=== PATIENT | male | born 1960 ===

== ENCOUNTER 2019-06-28 14:51 | Inpatient (IN) | payer OTHER ==
--- NOTE | 2019-06-28 16:38 | Event Note ---
ED Screening Note Date of service: 06/28/19 Time: 16:34 ED Screening Note: This is a 59 y.o. M. that presents to the ER with polyphasia and dizzy for 1 week. He went to [facility] today for symptoms and sent here for hyperglycemia and new onset DM. This initial assessment/diagnostic orders/clinical plan/treatment(s) is/are subject to change based on patients health status, clinical progression and re- assessment by fellow clinical providers in the ED. Further treatment and workup at subsequent clinical providers discretion. Patient/guardian urged not to elope from the ED as their condition may be serious if not clinically assessed and managed. Initial orders include: BG over 500 Labs
[2019-06-28 17:17] LABS: Basophils # (Auto) 0.1 K/mm3 (0.0-0.1); Basophils % (Auto) 0.7 % (0.0-1.8); Eosinophils % (Auto) 0.1 % (0.0-4.3); Hematocrit 53.2 % (35.5-45.6); Hemoglobin 17.2 gm/dl (11.8-15.2); Lymphocytes # (Auto) 2.1 K/mm3 (1.2-5.4); Lymphocytes % (Auto) 15.3 % (13.4-35.0); Mean Corpuscular HGB Conc 32 % (32-34); Mean Corpuscular Volume 93 fl (84-94); Monocytes % (Auto) 7.2 % (0.0-7.3); Platelet Count 352 K/mm3 (140-440); Red Blood Count 5.69 M/mm3 (3.65-5.03); Red Cell Distribution Width 14.1 % (13.2-15.2)
[2019-06-28 17:40] LABS: Calcium 9.5 mg/dL (8.4-10.2)
--- NOTE | 2019-06-28 18:19 | Emergency Department Report ---
ED General Adult HPI - General Chief complaint: Hyperglycemia Stated complaint: HIGH GLUCOSE/WEAKNESS Time Seen by Provider: 06/28/19 16:33 Source: patient, RN notes reviewed Mode of arrival: Ambulatory Limitations: Language Barrier - History of Present Illness Initial comments: This provider is conversant in Irish The patient is a 59-year-old gentleman who is not known to this provider previously, who indicates he does not have a local primary care doctor, who presents to the ER with increased thirst, increased urination, malaise, fatigue, generalized lack of energy. He is not experiencing physical pain at this time. Symptoms present for 2 weeks. He does not believe they have exacerbating or relieving factors, but there gradually getting worse. To his knowledge, he does not have a history of diabetes. Patient indicates he is not having physical pain at this time. -: Gradual, week(s) (2) Consistency: constant Improves with: none Worsens with: none - Related Data Allergies Allergy/AdvReac Type Severity Reaction Status Date / Time No Known Allergies Allergy Unverified 06/28/19 14:57 ED Review of Systems ROS: Stated complaint: HIGH GLUCOSE/WEAKNESS Other details as noted in HPI Constitutional: malaise, weakness Respiratory: denies: cough Cardiovascular: denies: chest pain Gastrointestinal: denies: abdominal pain Genitourinary: frequency Neurological: weakness ED Past Medical Hx - Past Medical History Previous Medical History?: No - Social History Smoking Status: Never Smoker Substance Use Type: None ED Physical Exam - General Limitations: Language Barrier General appearance: alert, anxious - Head Head exam: Present: atraumatic, normocephalic - Eye Eye exam: Present: normal appearance, EOMI. Absent: nystagmus - ENT ENT exam: Present: normal orophraynx, mucous membranes dry, normal external ear exam - Neck Neck exam: Present: normal inspection, full ROM. Absent: tenderness, meningismus - Respiratory Respiratory exam: Present: normal lung sounds bilaterally. Absent: respiratory distress - Cardiovascular Cardiovascular Exam: Present: normal rhythm, tachycardia, normal heart sounds. Absent: systolic murmur, diastolic murmur, rubs, gallop - GI/Abdominal GI/Abdominal exam: Present: soft. Absent: distended, tenderness, guarding, rebound, rigid, pulsatile mass - Rectal Rectal exam: Present: deferred - Extremities Exam Extremities exam: Present: normal inspection, full ROM, other (2+ pulses noted i n the bilateral upper and lower extremities. There is no long bony tenderness. The pelvis is stable, the muscular compartments are soft. There is no redness, pus or streaking.). Absent: pedal edema, calf tenderness - Back Exam Back exam: Present: normal inspection, full ROM. Absent: tenderness, CVA tenderness (R), CVA tenderness (L), paraspinal tenderness, vertebral tenderness - Neurological Exam Neurological exam: Present: alert, other (there is no facial droop. The tongue is midline. The extraocular movements are intact bilaterally. Phonating in complete sentences. Appropriate thought content. V1, V2, V3 intact bilaterally. 5 out of 5 strength in 4 extremities. Sensation intact to light touch in 4 extremities.). Absent: motor sensory deficit - Psychiatric Psychiatric exam: Present: anxious - Skin Skin exam: Present: warm, dry, intact, normal color. Absent: rash ED Course Vital Signs 06/28/19 06/28/19 06/28/19 18:14 18:57 19:43 Pulse Rate 98 H 99 H 96 H Respiratory 18 16 Rate Blood Pressure 159/95 Blood Pressure 162/100 158/104 [Left] O2 Sat by Pulse 95 99 Oximetry ED Medical Decision Making - Lab Data Result diagrams: 06/28/19 16:48 06/28/19 18:35 Vital Signs 06/28/19 18:14 Pulse Rate 98 H Respiratory 18 Rate Blood Pressure 162/100 [Left] O2 Sat by Pulse 95 Oximetry Lab Results 06/28/19 06/28/19 06/28/19 Range/Units 15:15 16:47 16:48 WBC 13.8 H (4.5-11.0) K/mm3 RBC 5.69 H (3.65-5.03) M/mm3 Hgb 17.2 H (11.8-15.2) gm/dl Hct 53.2 H (35.5-45.6) % MCV 93 (84-94) fl MCH 30 (28-32) pg MCHC 32 (32-34) % RDW 14.1 (13.2-15.2) % Plt Count 352 (140-440) K/mm3 Lymph % (Auto) 15.3 (13.4-35.0) % [place] % (Auto) 7.2 (0.0-7.3) % Eos % (Auto) 0.1 (0.0-4.3) % Baso % (Auto) 0.7 (0.0-1.8) % Lymph # 2.1 (1.2-5.4) K/mm3 [place] # 1.0 H (0.0-0.8) K/mm3 Eos # 0.0 (0.0-0.4) K/mm3 Baso # 0.1 (0.0-0.1) K/mm3 Seg Neutrophils % 76.7 H (40.0-70.0) % Seg Neutrophils # 10.6 H (1.8-7.7) K/mm3 Sodium (137-145) mmol/L Potassium (3.6-5.0) mmol/L Chloride (98-107) mmol/L Carbon Dioxide (22-30) mmol/L Anion Gap mmol/L BUN (9-20) mg/dL Creatinine (0.8-1.5) mg/dL Estimated GFR ml/min BUN/Creatinine Ratio % Glucose (75-100) mg/dL POC Glucose > 500 H > 500 H (70-105) Calcium (8.4-10.2) mg/dL 06/28/19 Range/Units 16:48 WBC (4.5-11.0) K/mm3 RBC (3.65-5.03) M/mm3 Hgb (11.8-15.2) gm/dl Hct (35.5-45.6) % MCV (84-94) fl MCH (28-32) pg MCHC (32-34) % RDW (13.2-15.2) % Plt Count (140-440) K/mm3 Lymph % (Auto) (13.4-35.0) % [place] % (Auto) (0.0-7.3) % Eos % (Auto) (0.0-4.3) % Baso % (Auto) (0.0-1.8) % Lymph # (1.2-5.4) K/mm3 [place] # (0.0-0.8) K/mm3 Eos # (0.0-0.4) K/mm3 Baso # (0.0-0.1) K/mm3 Seg Neutrophils % (40.0-70.0) % Seg Neutrophils # (1.8-7.7) K/mm3 Sodium 129 L (137-145) mmol/L Potassium 6.6 H* (3.6-5.0) mmol/L Chloride 90.9 L (98-107) mmol/L Carbon Dioxide 17 L (22-30) mmol/L Anion Gap 28 mmol/L BUN 38 H (9-20) mg/dL Creatinine 1.5 (0.8-1.5) mg/dL Estimated GFR 48 ml/min BUN/Creatinine Ratio 25 % Glucose 1311 H* (75-100) mg/dL POC Glucose (70-105) Calcium 9.5 (8.4-10.2) mg/dL - EKG Data -: EKG Interpreted by Me EKG shows normal: sinus rhythm Rate: normal - EKG Data When compared to previous EKG there are: previous EKG unavailable 06/28/19 18:49 There is no prior EKG available for comparison. EKG shows a sinus rhythm, 97 beats per minute, left axis deviation, left ventricular hypertrophy, left anterior fascicular block, not consistent with STEMI. No prior for comparison. Left axis deviation. - Radiology Data Radiology results: pending, report reviewed, image reviewed xr chest negative - Medical Decision Making Differential diagnosis, including but not limited to: Dehydration, diabetic ketoacidosis, hyperosmolar state Assessment and plan: 59-year-old gentleman with laboratory studies sent suggest diabetic ketoacidosis, pseudohyponatremia. He'll be started on a diabetic ketoacidotic protocol. IV fluids and insulin ordered. He'll need to be admitted to the hospital for correction of his metabolic derangement. Discussed this with the patient, who verbalizes understanding, and is amenable to hospitalization. The hospital physician, Dr. Bess, has accepted the patient to the medical service. Critical Care Time: Yes Critical care time in (mins) excluding proc time.: 35 Critical care attestation.: If time is entered above; I have spent that time in minutes in the direct care of this critically ill patient, excluding procedure time. ED Disposition Clinical Impression: DKA (diabetic ketoacidoses) Qualifiers: Diabetes mellitus type: due to underlying condition Diabetes mellitus complication detail: without coma Qualified Code(s): E08.10 - Diabetes mellitus due to underlying condition with ketoacidosis without coma Disposition: 09 OP ADMIT IP TO THIS HOSP Is pt being admited?: Yes Condition: Critical Instructions: Diabetic Ketoacidosis (ED)
[2019-06-28] MEDS ORDERED: SODIUM CHLORIDE 0.9% 1000 ML 2,000 ML IV ONE (18:20)
[2019-06-28] MEDS ORDERED: SODIUM CHLORIDE 0.9% 1000 ML 1,000 ML IV ONE (18:20)
[2019-06-28] MEDS ORDERED: INSULIN REGULAR, HUMAN 100 UNITS/1 ML IV ONE (18:20)
[2019-06-28] MEDS ORDERED: DEXTROSE 50% IN WATER (25GM) 50 ML SYRINGE IV PRN (18:20)
--- NOTE | 2019-06-28 18:44 | History and Physical Report ---
History of Present Illness Chief complaint: I feel sick History of present illness: 59-year-old male with no past medical history presents to ED for evaluation. Patient states that he has experienced increased thirst, polydipsia, polyphagia, polyuria, and generalized weakness over the past 2 weeks with worsening symptoms over the same timeframe. Patient transported to [facility] via private vehicle. Patient seen and evaluated in the emergency department. Lab and imaging studies reviewed. Patient found to have new onset diabetes mellitus complicated by diabetic ketoacidosis. Patient admitted to ICU for medical stabilization due to high risk for decompensation. Patient placed on DKA protocol. Patient treated with IV fluid resuscitation therapy, insulin drip, and supportive care. Patient denies fever, chills, chest pain, palpitations, bright red blood per rectum, productive cough, skin rash, shortness of breath, prolonged travel/immobility, individual/family history of DVT/PE/bleeding/blood clotting disorders, unilateral leg swelling, calf pain, recent ill contacts. No prior admission for review. No medication listed for reconciliation at time of admission. Past History Past Medical History: No medical history, other (Reviewed) Past Surgical History: No surgical history, Other (Reviewed) Social history: single. denies: smoking, alcohol abuse, prescription drug abuse Family history: diabetes, hypertension Medications and Allergies Allergies Allergy/AdvReac Type Severity Reaction Status Date / Time No Known Allergies Allergy Unverified 06/28/19 14:57 Active Meds: Active Medications Dextrose (D50w (25gm) Syringe) 0 ml IV Q30MIN PRN; Protocol PRN Reason: Hypoglycemia Sodium Chloride (Nacl 0.9% 1000 Ml) 1,000 mls @ 999 mls/hr IV BOLUS ONE Stop: 06/28/19 19:20 Insulin Human Regular 100 (units/ Sodium Chloride) 100 mls @ 1 mls/hr IV TITR KWASI; Protocol Potassium Chloride/Dextrose/Sod Cl (D5w/0.45% Nacl/Kcl 20 Meq) 20 meq in 1,000 mls @ 125 mls/hr IV DIRECT KWASI Sodium Chloride (Sodium Chloride Flush Syringe 10 Ml) 10 ml IV PRN KWASI Review of Systems Constitutional: no weight loss, no weight gain, no fever, no chills Ears, nose, mouth and throat: no ear pain, no nasal congestion, no nasal discharge, no sinus pain Cardiovascular: no chest pain, no palpitations, no rapid/irregular heart beat, no edema, no syncope Respiratory: no cough, no excessive sputum, no shortness of breath Gastrointestinal: no nausea, no vomiting, no constipation Genitourinary Male: urinary frequency, no hematuria, no flank pain, no discharg e, no urinary hesitancy Rectal: no pain, no incontinence, no bleeding Musculoskeletal: no neck stiffness, no neck pain, no low back pain, no shooting leg pain, no leg numbness/tingling Integumentary: no rash, no redness, no sores Neurological: weakness, no transient paralysis, no parathesias, no tingling, no syncope, no ataxia Psychiatric: no anxiety, no memory loss, no change in sleep habits, no sleep disturbances, no hypersomnia, no change in appetite, no change in libido, no suicidal ideation Endocrine: polyphagia, excessive thirst, polydipsia, polyuria, nocturia, no cold intolerance, no heat intolerance Hematologic/Lymphatic: no easy bruising, no easy bleeding, no lymphadenopathy, no lymphedema Allergic/Immunologic: no allergic rhinitis, no wheezing, no persistent infections, no anaphylaxis Exam - Constitutional Vitals: Temp Pulse Resp BP Pulse Ox 98 H 18 162/100 95 06/28/19 18:14 06/28/19 18:14 06/28/19 18:14 06/28/19 18:14 General appearance: Present: mild distress - EENT Eyes: Present: PERRL ENT: hearing intact, clear oral mucosa, other (Dry oral mucosa) - Neck Neck: Present: supple, normal ROM - Respiratory Respiratory effort: normal Respiratory: bilateral: CTA - Cardiovascular Rhythm: other (Tachycardia) Heart Sounds: Present: S1 & S2. Absent: rub, click - Extremities Extremities: pulses symmetrical, No edema Peripheral Pulses: within normal limits - Abdominal General gastrointestinal: Present: soft, non-tender, non-distended, normal bowel sounds Male genitourinary: Present: normal - Integumentary Integumentary: Present: clear, warm, dry, clammy, decreased turgor - Musculoskeletal Musculoskeletal: generalized weakness - Psychiatric Psychiatric: appropriate mood/affect, intact judgment & insight - Neurologic Neurologic: CNII-XII intact, moves all extremities Results - Labs CBC & Chem 7: 06/28/19 16:48 06/28/19 18:35 Labs: Abnormal lab results 06/28/19 06/28/19 06/28/19 Range/Units 15:15 16:47 16:48 WBC 13.8 H (4.5-11.0) K/mm3 RBC 5.69 H (3.65-5.03) M/mm3 Hgb 17.2 H (11.8-15.2) gm/dl Hct 53.2 H (35.5-45.6) % [place] # 1.0 H (0.0-0.8) K/mm3 Seg Neutrophils % 76.7 H (40.0-70.0) % Seg Neutrophils # 10.6 H (1.8-7.7) K/mm3 Sodium (137-145) mmol/L Potassium (3.6-5.0) mmol/L Chloride (98-107) mmol/L Carbon Dioxide (22-30) mmol/L BUN (9-20) mg/dL Glucose (75-100) mg/dL POC Glucose > 500 H > 500 H (70-105) 06/28/19 Range/Units 16:48 WBC (4.5-11.0) K/mm3 RBC (3.65-5.03) M/mm3 Hgb (11.8-15.2) gm/dl Hct (35.5-45.6) % [place] # (0.0-0.8) K/mm3 Seg Neutrophils % (40.0-70.0) % Seg Neutrophils # (1.8-7.7) K/mm3 Sodium 129 L (137-145) mmol/L Potassium 6.6 H* (3.6-5.0) mmol/L Chloride 90.9 L (98-107) mmol/L Carbon Dioxide 17 L (22-30) mmol/L BUN 38 H (9-20) mg/dL Glucose 1311 H* (75-100) mg/dL POC Glucose (70-105) Assessment and Plan - Patient Problems (1) DKA (diabetic ketoacidoses) Status: Acute Qualifiers: Diabetes mellitus type: due to underlying condition Diabetes mellitus complication detail: without coma Qualified Code(s): E08.10 - Diabetes mellitus due to underlying condition with ketoacidosis without coma Plan to address problem: DKA protocol: Admit to ICU, IV fluid resuscitation therapy, insulin drip, serial BMP, monitor urine output every shift, monitor anion gap, supportive care. The high probability of a clinically significant, sudden or life threatening deterioration of the [endocrine, renal, cardiac] system(s) required my full and direct attention, intervention and personal management. The aggregate critical care time was [65] minutes. This time is in addition to time spent performing reported procedures but includes the following: [X] Data Review and interpretation [X] Patient assessment and monitoring of vital signs [X] Documentation [X] Medication orders and management (2) Systemic inflammatory response syndrome Status: Acute Plan to address problem: CBC, CMP, chest x-ray, urinalysis, empiric IV antibiotic therapy x1. Repeat CBC in a.m. (3) Metabolic acidosis Status: Acute Plan to address problem: IV fluid resuscitation therapy, IV bicarbonate therapy, supportive care. Treat DKA. (4) DVT prophylaxis Status: Acute Plan to address problem: SCD to bilateral lower extremities while in bed, prophylactic heparin.
[2019-06-28] MEDS ORDERED: ALBUTEROL 2.5 MG/3 ML NEBU IH PRN (18:45)
[2019-06-28] MEDS ORDERED: SODIUM CHLORIDE 0.9% 1000 ML 1,000 ML IV SCH ×2 (18:45→18:48)
[2019-06-28] MEDS ORDERED: SODIUM BICARB 8.4% 50 MEQ/50 ML SYRINGE IV ONE (18:48)
--- NOTE | 2019-06-28 18:54 | XRay Report ---
CHEST 1 VIEW 06/28/2019 6:34 PM INDICATION / CLINICAL INFORMATION: weak new onset dka. COMPARISON: None available. FINDINGS: SUPPORT DEVICES: None. HEART / MEDIASTINUM: No significant abnormality. LUNGS / PLEURA: No significant pulmonary or pleural abnormality. No pneumothorax. ADDITIONAL FINDINGS: No significant additional findings. IMPRESSION: 1. No acute findings. Signer Name: Zach Wilcox MD Signed: 06/28/2019 6:49 PM Workstation Name: [id number]
[2019-06-28] MEDS ORDERED: hydrALAZINE 20 MG/1 ML INJ IV PRN (18:55)
[2019-06-28] MEDS ORDERED: D5W/0.45% NACL/KCL 20 MEQ 20 MEQ/1,000 ML BAG IV SCH (19:00)
[2019-06-28] MEDS ORDERED: INSULIN REGULAR, HUMAN 100 UNITS in SODIUM CHLORIDE 0.9% 99 ML IV SCH ×2 (19:00)
[2019-06-28 19:06] LABS: Calcium 9.6 mg/dL (8.4-10.2)
[2019-06-28 19:09] LABS: Alanine Aminotransferase 43 units/L (7-56); Albumin 4.3 g/dL (3.9-5)
[2019-06-28 19:17] LABS: Bilirubin,Direct < 0.2 mg/dL (0-0.2)
[2019-06-28] MEDS: LISINOPRIL 5 MG TAB PO SCH (19:43)
[2019-06-28] MEDS: cefTRIAXone/NS 1 GM/50 ML 1 GM/50 ML BAG IV SCH (19:43)
[2019-06-28 22:01] LABS: BUN/Creatinine Ratio 28; Blood Urea Nitrogen 33 mg/dL (9-20); Calcium 8.3 mg/dL (8.4-10.2); Hemolysis Index 3
[2019-06-28 23:34] LABS: BUN/Creatinine Ratio 26; Blood Urea Nitrogen 31 mg/dL (9-20); Calcium 9.1 mg/dL (8.4-10.2)
[2019-06-28 23:35] LABS: Hemolysis Index 8
[2019-06-28] MEDS ORDERED: FAMOTIDINE 20 MG TAB ONE (23:35)
[2019-06-28] MEDS ORDERED: HEPARIN 5,000 UNIT/1 ML VIAL ONE (23:35)
[2019-06-29] MEDS: HEPARIN 5,000 UNIT/1 ML VIAL SUB-Q SCH ×3 (00:08→22:14)
[2019-06-29] MEDS: FAMOTIDINE 20 MG TAB PO SCH ×3 (00:08→22:13)
[2019-06-29] MEDS ORDERED: D5W/0.45% NACL/KCL 20 MEQ 20 MEQ/1,000 ML BAG IV ONE (01:31)
[2019-06-29 02:12] LABS: Calcium 9.2 mg/dL (8.4-10.2)
[2019-06-29 03:47] LABS: Albumin 3.7 g/dL (3.9-5); Calcium 8.8 mg/dL (8.4-10.2)
[2019-06-29 06:35] LABS: Alanine Aminotransferase 32 units/L (7-56); BUN/Creatinine Ratio 28; Blood Urea Nitrogen 33 mg/dL (9-20); Calcium 8.8 mg/dL (8.4-10.2); Hemolysis Index 20
[2019-06-29 07:30] LABS: Albumin 3.6 g/dL (3.9-5)
[2019-06-29] MEDS ORDERED: DEXTROSE 50% IN WATER (25GM) 50 ML SYRINGE IV PRN (08:56)
[2019-06-29] MEDS ORDERED: INSULIN NPH, HUMAN 100 UNIT/1 ML SUB-Q SCH (09:30)
[2019-06-29 09:53] LABS: Bilirubin,Urine NEG (Negative); Blood,Urine NEG (Negative); Color,Urine Yellow (Yellow); Mucus,Urine FEW /HPF; Protein,Urine <15 mg/dL mg/dL (Negative); Urobilinogen,Urine < 2.0 mg/dL (<2.0)
[2019-06-29] MEDS ORDERED: LISINOPRIL 5 MG TAB ONE (11:12)
[2019-06-29] MEDS: LISINOPRIL 5 MG TAB PO SCH (11:12)
[2019-06-29] MEDS ORDERED: HEPARIN 5,000 UNIT/1 ML VIAL ONE (11:12)
[2019-06-29] MEDS ORDERED: FAMOTIDINE 20 MG TAB ONE (11:12)
--- NOTE | 2019-06-29 11:12 | Progress Note ---
Assessment and Plan Assessment and plan: 59-year-old man who presents to the hospital polydipsia and polyuria.He was being seen at the last clinic [place] for new onset diabetes and hyperglycemia, his blood glucose was over 500 and they recommended he come to the ER. DKA Status post insulin drip, now on subcutaneous insulin. IV fluids. A1c 11.7 Hypernatremia/dehydration Hypotonic IV fluid Health maintenance; check lipid panel Preventative health counseling performed for 17 minutes DVT prophylaxis; early ambulation History Interval history: Continues to complain of thirst and dehydration Review of systems Constitutional: No fevers, no malaise, no joint pains CVS: No chest pain, no orthopnea, no pedal edema GI: No abdominal pain, no diarrhea, no vomiting, no constipation Respiratory: , no wheezing, no coughing Hospitalist Physical - Physical exam Narrative exam: General.: Appears well, no distress, nontoxic HEENT: Dry mucous membranes Neck: supple Cardiac: S1-S2 heard Lungs: clear to auscultation bilaterally Abdomen: soft , nontender, nondistended, bowel sounds positive Extremities: no edema clubbing or cyanosis Skin: no rash or lesions Neurologic: no gross focal deficits Psych: calm, and cooperative - Constitutional Vitals: Temp Pulse Resp BP Pulse Ox 98.3 F 100 H 18 117/79 96 06/29/19 11:05 06/29/19 11:05 06/29/19 11:05 06/29/19 11:05 06/29/19 11:05 General appearance: Present: mild distress Results - Labs CBC & Chem 7: 06/28/19 16:48 06/29/19 05:54 Labs: Laboratory Last Values WBC 13.8 K/mm3 (4.5-11.0) H 06/28/19 16:48 RBC 5.69 M/mm3 (3.65-5.03) H 06/28/19 16:48 Hgb 17.2 gm/dl (11.8-15.2) H 06/28/19 16:48 Hct 53.2 % (35.5-45.6) H 06/28/19 16:48 MCV 93 fl (84-94) 06/28/19 16:48 MCH 30 pg (28-32) 06/28/19 16:48 MCHC 32 % (32-34) 06/28/19 16:48 RDW 14.1 % (13.2-15.2) 06/28/19 16:48 Plt Count 352 K/mm3 (140-440) 06/28/19 16:48 Lymph % (Auto) 15.3 % (13.4-35.0) 06/28/19 16:48 [place] % (Auto) 7.2 % (0.0-7.3) 06/28/19 16:48 Eos % (Auto) 0.1 % (0.0-4.3) 06/28/19 16:48 Baso % (Auto) 0.7 % (0.0-1.8) 06/28/19 16:48 Lymph # 2.1 K/mm3 (1.2-5.4) 06/28/19 16:48 [place] # 1.0 K/mm3 (0.0-0.8) H 06/28/19 16:48 Eos # 0.0 K/mm3 (0.0-0.4) 06/28/19 16:48 Baso # 0.1 K/mm3 (0.0-0.1) 06/28/19 16:48 Seg Neutrophils % 76.7 % (40.0-70.0) H 06/28/19 16:48 Seg Neutrophils # 10.6 K/mm3 (1.8-7.7) H 06/28/19 16:48 Sodium 153 mmol/L (137-145) H 06/29/19 05:54 Potassium 4.4 mmol/L (3.6-5.0) 06/29/19 05:54 Chloride 116.8 mmol/L (98-107) H 06/29/19 05:54 Carbon Dioxide 22 mmol/L (22-30) 06/29/19 05:54 Anion Gap 19 mmol/L 06/29/19 05:54 BUN 33 mg/dL (9-20) H 06/29/19 05:54 Creatinine 1.2 mg/dL (0.8-1.5) 06/29/19 05:54 Estimated GFR > 60 ml/min 06/29/19 05:54 BUN/Creatinine Ratio 28 % 06/29/19 05:54 Glucose 188 mg/dL (75-100) H 06/29/19 05:54 POC Glucose 368 (70-105) H 06/29/19 09:30 Hemoglobin A1c 11.7 % (4-6) H 06/28/19 18:35 Calcium 8.8 mg/dL (8.4-10.2) 06/29/19 05:54 Phosphorus 5.00 mg/dL (2.5-4.5) H 06/28/19 19:16 Magnesium 3.20 mg/dL (1.7-2.3) H 06/28/19 19:16 Total Bilirubin 0.30 mg/dL (0.1-1.2) 06/29/19 05:54 Direct Bilirubin < 0.2 mg/dL (0-0.2) 06/28/19 18:35 Indirect Bilirubin 0.3 mg/dL 06/28/19 18:35 AST 19 units/L (5-40) 06/29/19 05:54 ALT 32 units/L (7-56) 06/29/19 05:54 Alkaline Phosphatase 130 units/L (35-129) H 06/29/19 05:54 Total Creatine Kinase 360 units/L (55-170) H 06/28/19 18:35 Total Protein 7.1 g/dL (6.3-8.2) 06/29/19 05:54 Albumin 3.6 g/dL (3.9-5) L 06/29/19 05:54 Albumin/Globulin Ratio 1.0 % 06/29/19 05:54 Urine Color Yellow (Yellow) 06/29/19 09:42 Urine Turbidity Clear (Clear) 06/29/19 09:42 Urine pH 5.0 (5.0-7.0) 06/29/19 09:42 Ur Specific [place] 1.030 (1.003-1.030) 06/29/19 09:42 Urine Protein <15 mg/dl mg/dL (Negative) 06/29/19 09:42 Urine Glucose (UA) >=500 mg/dL (Negative) 06/29/19 09:42 Urine Ketones Tr mg/dL (Negative) 06/29/19 09:42 Urine Blood Neg (Negative) 06/29/19 09:42 Urine Nitrite Neg (Negative) 06/29/19 09:42 Urine Bilirubin Neg (Negative) 06/29/19 09:42 Urine Urobilinogen < 2.0 mg/dL (<2.0) 06/29/19 09:42 Ur Leukocyte Esterase Neg (Negative) 06/29/19 09:42 Urine WBC (Auto) 7.0 /HPF (0.0-6.0) H 06/29/19 09:42 Urine RBC (Auto) 3.0 /HPF (0.0-6.0) 06/29/19 09:42 U Epithel Cells (Auto) < 1.0 /HPF (0-13.0) 06/29/19 09:42 Urine Mucus Few /HPF 06/29/19 09:42 Active Medications - Current Medications Current Medications: Generic Name Dose Route Start Last Admin Trade Name Freq PRN Reason Stop Dose Admin Albuterol 2.5 mg 06/28/19 18:45 Proventil IH Q3H PRN Shortness Of Breath Dextrose 50 ml 06/29/19 08:56 D50w (25gm) Syringe IV Q30MIN PRN Hypoglycemia Protocol Famotidine 20 mg 06/28/19 22:00 06/29/19 00:08 Pepcid PO 20 mg BID KWASI Administration Heparin Sodium (Porcine) 5,000 unit 06/28/19 22:00 06/29/19 00:08 Heparin SUB-Q 5,000 unit Q12HR KWASI Administration Hydralazine HCl 10 mg 06/28/19 18:55 Apresoline IV Q6H PRN Hypertension Ceftriaxone Sodium 1 gm in 50 mls @ 100 mls/hr 06/28/19 20:00 06/28/19 19:43 Rocephin/Ns 1 Gm/50 Ml IV 100 mls/hr Q24H KWASI Administration Protocol Sodium Chloride 1,000 mls @ 125 mls/hr 06/29/19 09:00 Nacl 0.45% 1000 Ml IV DIRECT KWASI Insulin Human Isoph/Insulin Regular 20 unit 06/29/19 17:00 Humulin 70/30 SUB-Q BIDDIAB KWASI Insulin Human Regular 0 units 06/29/19 11:30 Humulin R SUB-Q ACHS KWASI Protocol Lisinopril 5 mg 06/28/19 20:00 06/28/19 19:43 Zestril PO 5 mg QDAY KWASI Administration Sodium Chloride 10 ml 06/28/19 22:00 06/29/19 00:09 Sodium Chloride Flush Syringe 10 Ml IV 10 ml BID KWASI Administration Sodium Chloride 10 ml 06/28/19 18:45 Sodium Chloride Flush Syringe 10 Ml IV PRN PRN LINE FLUSH
[2019-06-29] MEDS: INSULIN REGULAR, HUMAN 100 UNITS/1 ML SUB-Q SCH ×3 (14:00→22:27)
[2019-06-29] MEDS: SODIUM CHLORIDE 0.45% 1000 ML 1,000 ML IV SCH ×2 (14:47→22:12)
[2019-06-29] MEDS ORDERED: INSULIN NPH/REGULAR 70/30 INJ SUB-Q SCH ×3 (17:00)
[2019-06-29] MEDS: cefTRIAXone/NS 1 GM/50 ML 1 GM/50 ML BAG IV SCH (20:35)
[2019-06-29] MEDS ORDERED: INSULIN NPH, HUMAN 100 UNIT/1 ML SUB-Q ONE (22:00)
[2019-06-30] MEDS: SODIUM CHLORIDE 0.45% 1000 ML 1,000 ML IV SCH (06:54)
[2019-06-30] MEDS: INSULIN REGULAR, HUMAN 100 UNITS/1 ML SUB-Q SCH ×4 (09:06→22:28)
[2019-06-30] MEDS: INSULIN NPH/REGULAR 70/30 INJ SUB-Q SCH ×2 (09:07→18:33)
[2019-06-30] MEDS: HEPARIN 5,000 UNIT/1 ML VIAL SUB-Q SCH ×2 (09:08→21:02)
[2019-06-30] MEDS: FAMOTIDINE 20 MG TAB PO SCH ×2 (09:08→21:02)
[2019-06-30 09:26] LABS: Hematocrit 46.4 % (35.5-45.6); Hemoglobin 15.2 gm/dl (11.8-15.2); Mean Corpuscular HGB Conc 33 % (32-34); Mean Corpuscular Volume 87 fl (84-94); Platelet Count 310 K/mm3 (140-440); Red Blood Count 5.33 M/mm3 (3.65-5.03); Red Cell Distribution Width 13.2 % (13.2-15.2)
[2019-06-30 09:43] LABS: BUN/Creatinine Ratio 24; Blood Urea Nitrogen 24 mg/dL (9-20); Calcium 8.2 mg/dL (8.4-10.2); HDL Cholesterol 33 mg/dL (40-59); Hemolysis Index 12; LDL Cholesterol,Direct 83 mg/dL (50-130)
[2019-06-30] MEDS ORDERED: LISINOPRIL 20 MG TAB PO SCH (10:00)
[2019-06-30 10:05] LABS: Total Cells Counted 100
[2019-06-30 10:06] LABS: Platelet Estimate Consistent w Auto; RBC Morphology Normal
[2019-06-30] MEDS ORDERED: LISINOPRIL 20 MG TAB PO ONE (11:00)
[2019-06-30] MEDS ORDERED: ONDANSETRON 4 MG/2 ML INJ IV PRN (13:05)
--- NOTE | 2019-06-30 14:21 | Progress Note ---
Assessment and Plan Assessment and plan: 59-year-old man who presents to the hospital polydipsia and polyuria.He was being seen at the last clinic [place] for new onset diabetes and hyperglycemia, his blood glucose was over 500 and they recommended he come to the ER. DKA, type 2 diabetes with persistent hyperglycemia Status post insulin drip, now on subcutaneous insulin. IV fluids. A1c 11.7 -Continue to optimize insulin dose. Nausea; Question if patient has diabetic gastroparesis, check gastric emptying study. Zofran as needed Hypernatremia/dehydration Hypotonic IV fluid Hypertensive urgency; optimize BP meds Health maintenance; lipid panel shows elevated triglycerides, low HDL, and LDL in the 80s. Low-dose statin Preventative health counseling performed for 17 minutes DVT prophylaxis; early ambulation History Interval history: Virus has improved, he is having nausea Review of systems Constitutional: No fevers, no malaise, no joint pains CVS: No chest pain, no orthopnea, no pedal edema GI: No abdominal pain, no diarrhea, no vomiting, no constipation Respiratory: , no wheezing, no coughing Hospitalist Physical - Physical exam Narrative exam: General.: Appears well, no distress, nontoxic HEENT: Moist mucous membranes Neck: supple Cardiac: S1-S2 heard Lungs: clear to auscultation bilaterally Abdomen: soft , nontender, nondistended, bowel sounds positive Extremities: no edema clubbing or cyanosis Skin: no rash or lesions Neurologic: no gross focal deficits Psych: calm, and cooperative - Constitutional Vitals: Temp Pulse Resp BP Pulse Ox 97.5 F L 86 20 141/80 96 06/30/19 11:48 06/30/19 13:04 06/30/19 11:48 06/30/19 13:04 06/30/19 11:48 General appearance: Present: mild distress Results - Labs CBC & Chem 7: 06/30/19 09:00 06/30/19 09:00 Labs: Laboratory Last Values WBC 15.2 K/mm3 (4.5-11.0) H 06/30/19 09:00 RBC 5.33 M/mm3 (3.65-5.03) H 06/30/19 09:00 Hgb 15.2 gm/dl (11.8-15.2) 06/30/19 09:00 Hct 46.4 % (35.5-45.6) H D 06/30/19 09:00 MCV 87 fl (84-94) 06/30/19 09:00 MCH 29 pg (28-32) 06/30/19 09:00 MCHC 33 % (32-34) 06/30/19 09:00 RDW 13.2 % (13.2-15.2) 06/30/19 09:00 Plt Count 310 K/mm3 (140-440) 06/30/19 09:00 Lymph % (Auto) 15.3 % (13.4-35.0) 06/28/19 16:48 Moffat % (Auto) 7.2 % (0.0-7.3) 06/28/19 16:48 Eos % (Auto) 0.1 % (0.0-4.3) 06/28/19 16:48 Baso % (Auto) 0.7 % (0.0-1.8) 06/28/19 16:48 Lymph # Grinding Machine Operator 06/30/19 09:00 Moffat # 1.0 K/mm3 (0.0-0.8) H 06/28/19 16:48 Eos # 0.0 K/mm3 (0.0-0.4) 06/28/19 16:48 Baso # 0.1 K/mm3 (0.0-0.1) 06/28/19 16:48 Add Manual Diff Complete 06/30/19 09:00 Total Counted 100 06/30/19 09:00 Seg Neutrophils % 76.7 % (40.0-70.0) H 06/28/19 16:48 Seg Neuts % (Manual) 66.0 % (40.0-70.0) 06/30/19 09:00 Band Neutrophils % 0 % 06/30/19 09:00 Lymphocytes % (Manual) 29.0 % (13.4-35.0) 06/30/19 09:00 Reactive Lymphs % (Man) 0 % 06/30/19 09:00 Monocytes % (Manual) 3.0 % (0.0-7.3) 06/30/19 09:00 Eosinophils % (Manual) 1.0 % (0.0-4.3) 06/30/19 09:00 Basophils % (Manual) 1.0 % (0.0-1.8) 06/30/19 09:00 Metamyelocytes % 0 % 06/30/19 09:00 Myelocytes % 0 % 06/30/19 09:00 Promyelocytes % 0 % 06/30/19 09:00 Blast Cells % 0 % 06/30/19 09:00 Nucleated RBC % Not Reportable 06/30/19 09:00 Seg Neutrophils # 10.6 K/mm3 (1.8-7.7) H 06/28/19 16:48 Seg Neutrophils # Man 10.0 K/mm3 (1.8-7.7) H 06/30/19 09:00 Band Neutrophils # 0.0 K/mm3 06/30/19 09:00 Lymphocytes # (Manual) 4.4 K/mm3 (1.2-5.4) 06/30/19 09:00 Abs React Lymphs (Man) 0.0 K/mm3 06/30/19 09:00 Monocytes # (Manual) 0.5 K/mm3 (0.0-0.8) 06/30/19 09:00 Eosinophils # (Manual) 0.2 K/mm3 (0.0-0.4) 06/30/19 09:00 Basophils # (Manual) 0.2 K/mm3 (0.0-0.1) H 06/30/19 09:00 Metamyelocytes # 0.0 K/mm3 06/30/19 09:00 Myelocytes # 0.0 K/mm3 06/30/19 09:00 Promyelocytes # 0.0 K/mm3 06/30/19 09:00 Blast Cells # 0.0 K/mm3 06/30/19 09:00 WBC Morphology Not Reportable 06/30/19 09:00 Hypersegmented Neuts Not Reportable 06/30/19 09:00 Hyposegmented Neuts Not Reportable 06/30/19 09:00 Hypogranular Neuts Not Reportable 06/30/19 09:00 Smudge Cells Not Reportable 06/30/19 09:00 Toxic Granulation Not Reportable 06/30/19 09:00 Toxic Vacuolation Not Reportable 06/30/19 09:00 Dohle Bodies Not Reportable 06/30/19 09:00 Pelger-Huet Anomaly Not Reportable 06/30/19 09:00 Anastasiia Rods Not Reportable 06/30/19 09:00 Platelet Estimate Consistent w auto 06/30/19 09:00 Clumped Platelets Not Reportable 06/30/19 09:00 Plt Clumps, EDTA Not Reportable 06/30/19 09:00 Large Platelets Not Reportable 06/30/19 09:00 Giant Platelets Not Reportable 06/30/19 09:00 Platelet Satelliting Not Reportable 06/30/19 09:00 Plt Morphology Comment Not Reportable 06/30/19 09:00 RBC Morphology Normal 06/30/19 09:00 Dimorphic RBCs Not Reportable 06/30/19 09:00 Polychromasia Not Reportable 06/30/19 09:00 Hypochromasia Not Reportable 06/30/19 09:00 Poikilocytosis Not Reportable 06/30/19 09:00 Anisocytosis Not Reportable 06/30/19 09:00 Microcytosis Not Reportable 06/30/19 09:00 Macrocytosis Not Reportable 06/30/19 09:00 Spherocytes Not Reportable 06/30/19 09:00 Pappenheimer Bodies Not Reportable 06/30/19 09:00 Sickle Cells Not Reportable 06/30/19 09:00 Target Cells Not Reportable 06/30/19 09:00 Tear Drop Cells Not Reportable 06/30/19 09:00 Ovalocytes Not Reportable 06/30/19 09:00 Helmet Cells Not Reportable 06/30/19 09:00 [place] Bodies Not Reportable 06/30/19 09:00 [place] Rings Not Reportable 06/30/19 09:00 [place] Cells Not Reportable 06/30/19 09:00 Bite Cells Not Reportable 06/30/19 09:00 Crenated Cell Not Reportable 06/30/19 09:00 Elliptocytes Not Reportable 06/30/19 09:00 Acanthocytes (Spur) Not Reportable 06/30/19 09:00 Rouleaux Not Reportable 06/30/19 09:00 Hemoglobin C Crystals Not Reportable 06/30/19 09:00 Schistocytes Not Reportable 06/30/19 09:00 Malaria parasites Not Reportable 06/30/19 09:00 Ike Bodies Not Reportable 06/30/19 09:00 Hem Pathologist Commnt No 06/30/19 09:00 Sodium 147 mmol/L (137-145) H 06/30/19 09:00 Potassium 4.1 mmol/L (3.6-5.0) 06/30/19 09:00 Chloride 112.6 mmol/L (98-107) H 06/30/19 09:00 Carbon Dioxide 22 mmol/L (22-30) 06/30/19 09:00 Anion Gap 17 mmol/L 06/30/19 09:00 BUN 24 mg/dL (9-20) H 06/30/19 09:00 Creatinine 1.0 mg/dL (0.8-1.5) 06/30/19 09:00 Estimated GFR > 60 ml/min 06/30/19 09:00 BUN/Creatinine Ratio 24 % 06/30/19 09:00 Glucose 214 mg/dL (75-100) H 06/30/19 09:00 POC Glucose 280 (70-105) H 06/30/19 12:00 Hemoglobin A1c 11.7 % (4-6) H 06/28/19 18:35 Calcium 8.2 mg/dL (8.4-10.2) L 06/30/19 09:00 Phosphorus 5.00 mg/dL (2.5-4.5) H 06/28/19 19:16 Magnesium 3.20 mg/dL (1.7-2.3) H 06/28/19 19:16 Total Bilirubin 0.30 mg/dL (0.1-1.2) 06/29/19 05:54 Direct Bilirubin < 0.2 mg/dL (0-0.2) 06/28/19 18:35 Indirect Bilirubin 0.3 mg/dL 06/28/19 18:35 AST 19 units/L (5-40) 06/29/19 05:54 ALT 32 units/L (7-56) 06/29/19 05:54 Alkaline Phosphatase 130 units/L (35-129) H 06/29/19 05:54 Total Creatine Kinase 360 units/L (55-170) H 06/28/19 18:35 Total Protein 7.1 g/dL (6.3-8.2) 06/29/19 05:54 Albumin 3.6 g/dL (3.9-5) L 06/29/19 05:54 Albumin/Globulin Ratio 1.0 % 06/29/19 05:54 Triglycerides 195 mg/dL (2-149) H 06/30/19 09:00 Cholesterol 152 mg/dL (50-199) 06/30/19 09:00 LDL Cholesterol Direct 83 mg/dL (50-130) 06/30/19 09:00 HDL Cholesterol 33 mg/dL (40-59) L 06/30/19 09:00 Cholesterol/HDL Ratio 4.60 % 06/30/19 09:00 Urine Color Yellow (Yellow) 06/29/19 09:42 Urine Turbidity Clear (Clear) 06/29/19 09:42 Urine pH 5.0 (5.0-7.0) 06/29/19 09:42 Ur Specific [place] 1.030 (1.003-1.030) 06/29/19 09:42 Urine Protein <15 mg/dl mg/dL (Negative) 06/29/19 09:42 Urine Glucose (UA) >=500 mg/dL (Negative) 06/29/19 09:42 Urine Ketones Tr mg/dL (Negative) 06/29/19 09:42 Urine Blood Neg (Negative) 06/29/19 09:42 Urine Nitrite Neg (Negative) 06/29/19 09:42 Urine Bilirubin Neg (Negative) 06/29/19 09:42 Urine Urobilinogen < 2.0 mg/dL (<2.0) 06/29/19 09:42 Ur Leukocyte Esterase Neg (Negative) 06/29/19 09:42 Urine WBC (Auto) 7.0 /HPF (0.0-6.0) H 06/29/19 09:42 Urine RBC (Auto) 3.0 /HPF (0.0-6.0) 06/29/19 09:42 U Epithel Cells (Auto) < 1.0 /HPF (0-13.0) 06/29/19 09:42 Urine Mucus Few /HPF 06/29/19 09:42 Active Medications - Current Medications Current Medications: Generic Name Dose Route Start Last Admin Trade Name Freq PRN Reason Stop Dose Admin Albuterol 2.5 mg 06/28/19 18:45 Proventil IH Q3H PRN Shortness Of Breath Dextrose 50 ml 06/29/19 08:56 D50w (25gm) Syringe IV Q30MIN PRN Hypoglycemia Protocol Famotidine 20 mg 06/28/19 22:00 06/30/19 09:08 Pepcid PO 20 mg BID KWASI Administration Heparin Sodium (Porcine) 5,000 unit 06/28/19 22:00 06/30/19 09:08 Heparin SUB-Q 5,000 unit Q12HR KWASI Administration Hydralazine HCl 10 mg 06/28/19 18:55 Apresoline IV Q6H PRN Hypertension Ceftriaxone Sodium 1 gm in 50 mls @ 100 mls/hr 06/28/19 20:00 06/29/19 21:00 Rocephin/Ns 1 Gm/50 Ml IV Infused Q24H KWASI Infusion Protocol Sodium Chloride 1,000 mls @ 125 mls/hr 06/29/19 09:00 06/30/19 06:54 Nacl 0.45% 1000 Ml IV 125 mls/hr DIRECT KWASI Administration Insulin Human Isoph/Insulin Regular 40 unit 06/30/19 08:00 06/30/19 09:07 Humulin 70/30 SUB-Q 40 unit BIDDIAB KWASI Administration Insulin Human Regular 0 units 06/29/19 11:30 06/30/19 13:02 Humulin R SUB-Q 6 units ACHS KWASI Administration Protocol Lisinopril 40 mg 07/01/19 10:00 Zestril PO QDAY KWASI Ondansetron HCl 4 mg 06/30/19 13:05 06/30/19 13:18 Zofran IV 4 mg Q4H PRN Administration Nausea Sodium Chloride 10 ml 06/28/19 22:00 06/30/19 13:05 Sodium Chloride Flush Syringe 10 Ml IV 10 ml BID KWASI Administration Sodium Chloride 10 ml 06/28/19 18:45 Sodium Chloride Flush Syringe 10 Ml IV PRN PRN LINE FLUSH
[2019-06-30] MEDS: cefTRIAXone/NS 1 GM/50 ML 1 GM/50 ML BAG IV SCH (20:56)
[2019-06-30] MEDS: PRAVASTATIN 20 MG TAB PO SCH (21:02)
[2019-07-01] MEDS: SODIUM CHLORIDE 0.45% 1000 ML 1,000 ML IV SCH ×2 (00:55→18:19)
[2019-07-01 05:25] LABS: BUN/Creatinine Ratio 19; Blood Urea Nitrogen 13 mg/dL (9-20); Calcium 8.3 mg/dL (8.4-10.2); Hemolysis Index 5
[2019-07-01] MEDS: INSULIN REGULAR, HUMAN 100 UNITS/1 ML SUB-Q SCH ×4 (08:41→21:54)
[2019-07-01] MEDS: HEPARIN 5,000 UNIT/1 ML VIAL SUB-Q SCH ×2 (10:21→21:46)
[2019-07-01] MEDS: FAMOTIDINE 20 MG TAB PO SCH ×2 (10:21→21:46)
[2019-07-01] MEDS: LISINOPRIL 40 MG TAB PO SCH (10:22)
[2019-07-01] MEDS: INSULIN NPH/REGULAR 70/30 INJ SUB-Q SCH ×2 (10:23→18:18)
--- NOTE | 2019-07-01 10:28 | Nuclear Medicine Report ---
Gastric emptying Scan HISTORY: n/v DM. TECHNIQUE: Patient was given 1 mCi of technetium sulfur colloid mixed with oatmeal. COMPARISON: None FINDINGS: Gastric emptying was 24% at 15 minutes, 94% at 60 minutes, and 97% at 90 minutes. IMPRESSION: Normal gastric emptying. Signer Name: Farooq Munson MD Signed: 07/01/2019 10:24 AM Workstation Name: [id number]
--- NOTE | 2019-07-01 15:52 | Progress Note ---
Assessment and Plan Assessment and plan: 59-year-old man who presents to the hospital polydipsia and polyuria.He was being seen at the last clinic [place] for new onset diabetes and hyperglycemia, his blood glucose was over 500 and they recommended he come to the ER. DKA, type 2 diabetes with persistent hyperglycemia Status post insulin drip, now on subcutaneous insulin. IV fluids. A1c 11.7 -Continue to optimize insulin dose. Nausea; Question if patient has diabetic gastroparesis, check gastric emptying study. Zofran as needed Hypernatremia/dehydration Hypotonic IV fluid Hypertensive urgency; optimize BP meds Health maintenance; lipid panel shows elevated triglycerides, low HDL, and LDL in the 80s. Low-dose statin Preventative health counseling performed for 17 minutes DVT prophylaxis; early ambulation Hospitalist Physical - Constitutional Vitals: Temp Pulse Resp BP Pulse Ox 97.8 F 81 18 127/74 95 07/01/19 11:47 07/01/19 11:47 07/01/19 11:47 07/01/19 11:47 07/01/19 11:47 General appearance: Present: mild distress Results - Labs CBC & Chem 7: 06/30/19 09:00 07/01/19 04:18 Labs: Laboratory Last Values WBC 15.2 K/mm3 (4.5-11.0) H 06/30/19 09:00 RBC 5.33 M/mm3 (3.65-5.03) H 06/30/19 09:00 Hgb 15.2 gm/dl (11.8-15.2) 06/30/19 09:00 Hct 46.4 % (35.5-45.6) H D 06/30/19 09:00 MCV 87 fl (84-94) 06/30/19 09:00 MCH 29 pg (28-32) 06/30/19 09:00 MCHC 33 % (32-34) 06/30/19 09:00 RDW 13.2 % (13.2-15.2) 06/30/19 09:00 Plt Count 310 K/mm3 (140-440) 06/30/19 09:00 Lymph % (Auto) 15.3 % (13.4-35.0) 06/28/19 16:48 Floyd % (Auto) 7.2 % (0.0-7.3) 06/28/19 16:48 Eos % (Auto) 0.1 % (0.0-4.3) 06/28/19 16:48 Baso % (Auto) 0.7 % (0.0-1.8) 06/28/19 16:48 Lymph # Grinder Lap 06/30/19 09:00 [place] # 1.0 K/mm3 (0.0-0.8) H 06/28/19 16:48 Eos # 0.0 K/mm3 (0.0-0.4) 06/28/19 16:48 Baso # 0.1 K/mm3 (0.0-0.1) 06/28/19 16:48 Add Manual Diff Complete 06/30/19 09:00 Total Counted 100 06/30/19 09:00 Seg Neutrophils % 76.7 % (40.0-70.0) H 06/28/19 16:48 Seg Neuts % (Manual) 66.0 % (40.0-70.0) 06/30/19 09:00 Band Neutrophils % 0 % 06/30/19 09:00 Lymphocytes % (Manual) 29.0 % (13.4-35.0) 06/30/19 09:00 Reactive Lymphs % (Man) 0 % 06/30/19 09:00 Monocytes % (Manual) 3.0 % (0.0-7.3) 06/30/19 09:00 Eosinophils % (Manual) 1.0 % (0.0-4.3) 06/30/19 09:00 Basophils % (Manual) 1.0 % (0.0-1.8) 06/30/19 09:00 Metamyelocytes % 0 % 06/30/19 09:00 Myelocytes % 0 % 06/30/19 09:00 Promyelocytes % 0 % 06/30/19 09:00 Blast Cells % 0 % 06/30/19 09:00 Nucleated RBC % Not Reportable 06/30/19 09:00 Seg Neutrophils # 10.6 K/mm3 (1.8-7.7) H 06/28/19 16:48 Seg Neutrophils # Man 10.0 K/mm3 (1.8-7.7) H 06/30/19 09:00 Band Neutrophils # 0.0 K/mm3 06/30/19 09:00 Lymphocytes # (Manual) 4.4 K/mm3 (1.2-5.4) 06/30/19 09:00 Abs React Lymphs (Man) 0.0 K/mm3 06/30/19 09:00 Monocytes # (Manual) 0.5 K/mm3 (0.0-0.8) 06/30/19 09:00 Eosinophils # (Manual) 0.2 K/mm3 (0.0-0.4) 06/30/19 09:00 Basophils # (Manual) 0.2 K/mm3 (0.0-0.1) H 06/30/19 09:00 Metamyelocytes # 0.0 K/mm3 06/30/19 09:00 Myelocytes # 0.0 K/mm3 06/30/19 09:00 Promyelocytes # 0.0 K/mm3 06/30/19 09:00 Blast Cells # 0.0 K/mm3 06/30/19 09:00 WBC Morphology Not Reportable 06/30/19 09:00 Hypersegmented Neuts Not Reportable 06/30/19 09:00 Hyposegmented Neuts Not Reportable 06/30/19 09:00 Hypogranular Neuts Not Reportable 06/30/19 09:00 Smudge Cells Not Reportable 06/30/19 09:00 Toxic Granulation Not Reportable 06/30/19 09:00 Toxic Vacuolation Not Reportable 06/30/19 09:00 Dohle Bodies Not Reportable 06/30/19 09:00 Pelger-Huet Anomaly Not Reportable 06/30/19 09:00 Anastasiia Rods Not Reportable 06/30/19 09:00 Platelet Estimate Consistent w auto 06/30/19 09:00 Clumped Platelets Not Reportable 06/30/19 09:00 Plt Clumps, EDTA Not Reportable 06/30/19 09:00 Large Platelets Not Reportable 06/30/19 09:00 Giant Platelets Not Reportable 06/30/19 09:00 Platelet Satelliting Not Reportable 06/30/19 09:00 Plt Morphology Comment Not Reportable 06/30/19 09:00 RBC Morphology Normal 06/30/19 09:00 Dimorphic RBCs Not Reportable 06/30/19 09:00 Polychromasia Not Reportable 06/30/19 09:00 Hypochromasia Not Reportable 06/30/19 09:00 Poikilocytosis Not Reportable 06/30/19 09:00 Anisocytosis Not Reportable 06/30/19 09:00 Microcytosis Not Reportable 06/30/19 09:00 Macrocytosis Not Reportable 06/30/19 09:00 Spherocytes Not Reportable 06/30/19 09:00 Pappenheimer Bodies Not Reportable 06/30/19 09:00 Sickle Cells Not Reportable 06/30/19 09:00 Target Cells Not Reportable 06/30/19 09:00 Tear Drop Cells Not Reportable 06/30/19 09:00 Ovalocytes Not Reportable 06/30/19 09:00 Helmet Cells Not Reportable 06/30/19 09:00 [place] Bodies Not Reportable 06/30/19 09:00 [place] Rings Not Reportable 06/30/19 09:00 [place] Cells Not Reportable 06/30/19 09:00 Bite Cells Not Reportable 06/30/19 09:00 Crenated Cell Not Reportable 06/30/19 09:00 Elliptocytes Not Reportable 06/30/19 09:00 Acanthocytes (Spur) Not Reportable 06/30/19 09:00 Rouleaux Not Reportable 06/30/19 09:00 Hemoglobin C Crystals Not Reportable 06/30/19 09:00 Schistocytes Not Reportable 06/30/19 09:00 Malaria parasites Not Reportable 06/30/19 09:00 Ike Bodies Not Reportable 06/30/19 09:00 Hem Pathologist Commnt No 06/30/19 09:00 Sodium 148 mmol/L (137-145) H 07/01/19 04:18 Potassium 3.4 mmol/L (3.6-5.0) L 07/01/19 04:18 Chloride 113.1 mmol/L (98-107) H 07/01/19 04:18 Carbon Dioxide 20 mmol/L (22-30) L 07/01/19 04:18 Anion Gap 18 mmol/L 07/01/19 04:18 BUN 13 mg/dL (9-20) 07/01/19 04:18 Creatinine 0.7 mg/dL (0.8-1.5) L 07/01/19 04:18 Estimated GFR > 60 ml/min 07/01/19 04:18 BUN/Creatinine Ratio 19 % 07/01/19 04:18 Glucose 75 mg/dL (75-100) 07/01/19 04:18 POC Glucose 478 (70-105) H 07/01/19 11:32 Hemoglobin A1c 11.7 % (4-6) H 06/28/19 18:35 Calcium 8.3 mg/dL (8.4-10.2) L 07/01/19 04:18 Phosphorus 5.00 mg/dL (2.5-4.5) H 06/28/19 19:16 Magnesium 3.20 mg/dL (1.7-2.3) H 06/28/19 19:16 Total Bilirubin 0.30 mg/dL (0.1-1.2) 06/29/19 05:54 Direct Bilirubin < 0.2 mg/dL (0-0.2) 06/28/19 18:35 Indirect Bilirubin 0.3 mg/dL 06/28/19 18:35 AST 19 units/L (5-40) 06/29/19 05:54 ALT 32 units/L (7-56) 06/29/19 05:54 Alkaline Phosphatase 130 units/L (35-129) H 06/29/19 05:54 Total Creatine Kinase 360 units/L (55-170) H 06/28/19 18:35 Total Protein 7.1 g/dL (6.3-8.2) 06/29/19 05:54 Albumin 3.6 g/dL (3.9-5) L 06/29/19 05:54 Albumin/Globulin Ratio 1.0 % 06/29/19 05:54 Triglycerides 195 mg/dL (2-149) H 06/30/19 09:00 Cholesterol 152 mg/dL (50-199) 06/30/19 09:00 LDL Cholesterol Direct 83 mg/dL (50-130) 06/30/19 09:00 HDL Cholesterol 33 mg/dL (40-59) L 06/30/19 09:00 Cholesterol/HDL Ratio 4.60 % 06/30/19 09:00 Urine Color Yellow (Yellow) 06/29/19 09:42 Urine Turbidity Clear (Clear) 06/29/19 09:42 Urine pH 5.0 (5.0-7.0) 06/29/19 09:42 Ur Specific Penrose 1.030 (1.003-1.030) 06/29/19 09:42 Urine Protein <15 mg/dl mg/dL (Negative) 06/29/19 09:42 Urine Glucose (UA) >=500 mg/dL (Negative) 06/29/19 09:42 Urine Ketones Tr mg/dL (Negative) 06/29/19 09:42 Urine Blood Neg (Negative) 06/29/19 09:42 Urine Nitrite Neg (Negative) 06/29/19 09:42 Urine Bilirubin Neg (Negative) 06/29/19 09:42 Urine Urobilinogen < 2.0 mg/dL (<2.0) 06/29/19 09:42 Ur Leukocyte Esterase Neg (Negative) 06/29/19 09:42 Urine WBC (Auto) 7.0 /HPF (0.0-6.0) H 06/29/19 09:42 Urine RBC (Auto) 3.0 /HPF (0.0-6.0) 06/29/19 09:42 U Epithel Cells (Auto) < 1.0 /HPF (0-13.0) 06/29/19 09:42 Urine Mucus Few /HPF 06/29/19 09:42 Active Medications - Current Medications Current Medications: Generic Name Dose Route Start Last Admin Trade Name Freq PRN Reason Stop Dose Admin Albuterol 2.5 mg 06/28/19 18:45 Proventil IH Q3H PRN Shortness Of Breath Dextrose 50 ml 06/29/19 08:56 D50w (25gm) Syringe IV Q30MIN PRN Hypoglycemia Protocol Famotidine 20 mg 06/28/19 22:00 07/01/19 10:21 Pepcid PO 20 mg BID KWASI Administration Heparin Sodium (Porcine) 5,000 unit 06/28/19 22:00 07/01/19 10:21 Heparin SUB-Q 5,000 unit Q12HR KWASI Administration Hydralazine HCl 10 mg 06/28/19 18:55 Apresoline IV Q6H PRN Hypertension Ceftriaxone Sodium 1 gm in 50 mls @ 100 mls/hr 06/28/19 20:00 06/30/19 20:56 Rocephin/Ns 1 Gm/50 Ml IV 100 mls/hr Q24H KWASI Administration Protocol Sodium Chloride 1,000 mls @ 125 mls/hr 06/29/19 09:00 07/01/19 00:55 Nacl 0.45% 1000 Ml IV 125 mls/hr DIRECT KWASI Administration Insulin Human Isoph/Insulin Regular 40 unit 06/30/19 08:00 07/01/19 10:23 Humulin 70/30 SUB-Q 40 unit BIDDIAB KWASI Administration Insulin Human Regular 0 units 06/29/19 11:30 07/01/19 12:55 Humulin R SUB-Q 10 units ACHS KWASI Administration Protocol Lisinopril 40 mg 07/01/19 10:00 07/01/19 10:22 Zestril PO 40 mg QDAY KWASI Administration Ondansetron HCl 4 mg 06/30/19 13:05 06/30/19 13:18 Zofran IV 4 mg Q4H PRN Administration Nausea Pravastatin Sodium 20 mg 06/30/19 22:00 06/30/19 21:02 Pravachol PO 20 mg QHS KWASI Administration Sodium Chloride 10 ml 06/28/19 22:00 07/01/19 10:23 Sodium Chloride Flush Syringe 10 Ml IV 10 ml BID KWASI Administration Sodium Chloride 10 ml 06/28/19 18:45 Sodium Chloride Flush Syringe 10 Ml IV PRN PRN LINE FLUSH Nutrition/Malnutrition Assess - Dietary Evaluation Nutrition/Malnutrition Findings: Nutrition Notes Start: 06/30/19 14:10 Freq: Status: Active Protocol: Document 06/30/19 14:10 OH (Rec: 06/30/19 14:25 OH [id number]) Nutrition Notes Need for Assessment generated from: MD Order Initial or Follow up Assessment Current Diagnosis Diabetes Current Diet Consistent CHO Labs/Tests HGBA1C 11.7 TG 195 GLU 152 NA 147 ALB 3.6 TC 152 K+ 4.1 Pertinent Medications Heparin Height 5 ft 7 in Weight 68 kg [place] Body Weight (kg) 67.27 BMI 23.4 Intake Prior to Admission Fair Weight Status Appropriate Subjective/Other Information Pt. newly diagnosed as diabetic. Pt. speaks [place] only. Liver Trimmer line used to discuss diagnosis with pt. Per pt his will be preparing /cooking etc for him. Phone number of provided on white board in patient's room. Will use number as contact for diabetes education class here at [facility]. NO N/V noted by patient. He reports of not consuming ET0H beverages frequently. Pt. using regular sugar to anna foods. Update: /GF in room. Pt. verbalized pt will follow recommendations provided. Percent of energy/protein needs met: 50/50% Burn Absent Trauma Absent GI Symptoms None Current % PO Fair (50-74%) Minimum of two criteria No physical signs of malnutrition #3 Nutrition Diagnosis Inadequate oral intake Etiology poor oral intake As Evidenced by Signs and Symptoms <75% meal trays consumed #2 Nutrition Diagnosis Altered nutrition-related laboratory values Etiology uncontrolled DM As Evidenced by Signs and Symptoms DKA/Inadequate understanding of diabetes and fdc health implications #1 Nutrition Diagnosis Food and nutrition-related knowledge deficit Etiology newly diagnosed diabetic As Evidenced by Signs and Symptoms hgba1c 11.7; questions related to DM diagnosis Is patient on ventilator? No Is Patient Ambulatory and/or Out of Bed Yes [facility] [ [id number] [id number]] Calculation [facility]ations [facility] Additional Notes PRO: 0.8-1.0 g/kg 54-67 g/ day FLUID: 1ml/kcal Nutrition Intervention Change Diet Order: Consistent CHO Teaching Recipient Patient,Significant Other Learning Readiness Fair Teaching Methods Discussion,Handout Response to Teaching Reinforcement needed Education Handouts Provided Provided pt w/[place]-Malagasy materials related to diabetes. Rec pt attend diabetes education class to have better understanding of diabetes and impact on fdc health. Pt. reported no health insurance that he could use for referral to further nutrition education related to DM. GF states he has never been to a MD in his life. Pt. has referrals for sliding scale/clinics for PCP. Emphasized need to monitor bloodsugar levels to manage kidney impact. CHO SOURCES/DM + KIDNEY DZ/HYPO-HYPERGLYCEMIC HANDOUTS PROVIDED. Barriers to Learning Reading skills,Motivation,Age related,Language,Emotional, Cultural,Financial, Environmental,Social Goal #1 po intake to exceed 75% at meals Anticipated Discharge Needs: DM EDUCATION/REINFORCEMENT Follow-Up By: 07/03/19 Additional Comments po intake/further DM instruction prn
[2019-07-01] MEDS: cefTRIAXone/NS 1 GM/50 ML 1 GM/50 ML BAG IV SCH (21:46)
[2019-07-01] MEDS: PRAVASTATIN 20 MG TAB PO SCH (21:49)
[2019-07-02 07:57] LABS: BUN/Creatinine Ratio 13; Blood Urea Nitrogen 10 mg/dL (9-20); Hemolysis Index 7
[2019-07-02] MEDS: INSULIN REGULAR, HUMAN 100 UNITS/1 ML SUB-Q SCH ×4 (08:10→22:49)
[2019-07-02] MEDS: FAMOTIDINE 20 MG TAB PO SCH ×2 (09:48→22:44)
[2019-07-02] MEDS: HEPARIN 5,000 UNIT/1 ML VIAL SUB-Q SCH ×2 (09:49→22:44)
[2019-07-02] MEDS: LISINOPRIL 40 MG TAB PO SCH (09:51)
[2019-07-02] MEDS: INSULIN NPH/REGULAR 70/30 INJ SUB-Q SCH ×3 (10:50→17:43)
--- NOTE | 2019-07-02 16:55 | Discharge Summary ---
Providers - Providers Date of Admission: 06/28/19 18:45 Date of discharge: 07/02/19 Attending physician: NELSON CYR 06/30/19 14:18 Consult to Dietitian/Nutrition [CONS] Routine Physician Instructions: Reason For Exam: Reason for Consult: Diet education Primary care physician: ED DOC Hospitalization Condition: Fair Disposition: DC-01 TO HOME OR SELFCARE Time spent for discharge: 32 min Core Measure Documentation - Palliative Care Palliative Care/ Comfort Measures: Not Applicable - Core Measures Any of the following diagnoses?: none Exam - Constitutional Vitals: Temp Pulse Resp BP Pulse Ox 97.4 F L 85 20 130/70 97 07/02/19 04:21 07/01/19 20:51 07/02/19 04:21 07/02/19 09:51 07/01/19 20:51 General appearance: Present: no acute distress, well-nourished - EENT Eyes: Present: PERRL, EOM intact - Neck Neck: Present: supple, normal ROM - Respiratory Respiratory: negative: rales, rhonchi, wheezing - Cardiovascular Rhythm: regular Heart Sounds: Present: S1 & S2 - Extremities Extremities: no ischemia, No edema - Abdominal General gastrointestinal: Present: soft, non-tender, non-distended, normal bowel sounds - Integumentary Integumentary: Present: clear, warm - Musculoskeletal Musculoskeletal: strength equal bilaterally, generalized weakness - Psychiatric Psychiatric: appropriate mood/affect, cooperative - Neurologic Neurologic: CNII-XII intact, moves all extremities Plan Follow up with: CHRISTIAN,ED, MD [Primary Care Provider] - 7 Days
--- NOTE | 2019-07-02 16:56 | Progress Note ---
Assessment and Plan Assessment and plan: Assessment and plan: 59-year-old man who presents to the hospital polydipsia and polyuria.He was being seen at the last clinic [place] for new onset diabetes and hyperglycemia, his blood glucose was over 500 and they recommended he come to the ER. --Diabetic ketoacidosis: Managed per DKA protocol, off insulin drip, HbA1c 11.7 --Type 2 diabetes mellitus; moderate control Continue Novolin 70/30, Accu-Chek sliding scale coverage ADA diet, diabetic education, nutrition education. --Mild acute gastritis: Resolved, Protonix, antiemetics --Hypernatremia; secondary to dehydration; Trending down, encourage plenty of oral fluids Monitor electrolytes --Hypertensive urgency; present on admission Moderate control, continue current antihypertensives and PRN medications --Acute kidney injury; vasomotor nephropathy, present on admission Resolved, avoid nephrotoxins --Health maintenance; lipid panel shows elevated triglycerides, low HDL, and LDL in the 80s. Low-dose statin Preventative health counseling performed for 17 minutes DVT prophylaxis; heparin ,early ambulation Monitor closely and adjust management as needed Possible discharge home tomorrow if stable History Interval history: Patient seen and examined patient's chart reviewed Patient's blood sugars are reasonable levels ranging in 200s and 300s On 70/30 insulin Patient has no new complaints Vital signs noted Hospitalist Physical - Constitutional Vitals: Temp Pulse Resp BP Pulse Ox 97.4 F L 85 20 130/70 97 07/02/19 04:21 07/01/19 20:51 07/02/19 04:21 07/02/19 09:51 07/01/19 20:51 General appearance: Present: no acute distress, well-nourished - EENT Eyes: Present: PERRL, EOM intact - Neck Neck: Present: supple, normal ROM - Respiratory Respiratory effort: normal Respiratory: bilateral: diminished, negative: rales, rhonchi, wheezing - Cardiovascular Rhythm: regular Heart Sounds: Present: S1 & S2 - Extremities Extremities: no ischemia, No edema - Abdominal General gastrointestinal: soft, non-tender, non-distended, normal bowel sounds - Integumentary Integumentary: Present: clear, warm - Psychiatric Psychiatric: appropriate mood/affect, cooperative - Neurologic Neurologic: CNII-XII intact, moves all extremities Results - Labs CBC & Chem 7: 06/30/19 09:00 07/02/19 06:41 Labs: Laboratory Last Values WBC 15.2 K/mm3 (4.5-11.0) H 06/30/19 09:00 RBC 5.33 M/mm3 (3.65-5.03) H 06/30/19 09:00 Hgb 15.2 gm/dl (11.8-15.2) 06/30/19 09:00 Hct 46.4 % (35.5-45.6) H D 06/30/19 09:00 MCV 87 fl (84-94) 06/30/19 09:00 MCH 29 pg (28-32) 06/30/19 09:00 MCHC 33 % (32-34) 06/30/19 09:00 RDW 13.2 % (13.2-15.2) 06/30/19 09:00 Plt Count 310 K/mm3 (140-440) 06/30/19 09:00 Lymph % (Auto) 15.3 % (13.4-35.0) 06/28/19 16:48 Ford % (Auto) 7.2 % (0.0-7.3) 06/28/19 16:48 Eos % (Auto) 0.1 % (0.0-4.3) 06/28/19 16:48 Baso % (Auto) 0.7 % (0.0-1.8) 06/28/19 16:48 Lymph # Aeronautical Design Engineer 06/30/19 09:00 Ford # 1.0 K/mm3 (0.0-0.8) H 06/28/19 16:48 Eos # 0.0 K/mm3 (0.0-0.4) 06/28/19 16:48 Baso # 0.1 K/mm3 (0.0-0.1) 06/28/19 16:48 Add Manual Diff Complete 06/30/19 09:00 Total Counted 100 06/30/19 09:00 Seg Neutrophils % 76.7 % (40.0-70.0) H 06/28/19 16:48 Seg Neuts % (Manual) 66.0 % (40.0-70.0) 06/30/19 09:00 Band Neutrophils % 0 % 06/30/19 09:00 Lymphocytes % (Manual) 29.0 % (13.4-35.0) 06/30/19 09:00 Reactive Lymphs % (Man) 0 % 06/30/19 09:00 Monocytes % (Manual) 3.0 % (0.0-7.3) 06/30/19 09:00 Eosinophils % (Manual) 1.0 % (0.0-4.3) 06/30/19 09:00 Basophils % (Manual) 1.0 % (0.0-1.8) 06/30/19 09:00 Metamyelocytes % 0 % 06/30/19 09:00 Myelocytes % 0 % 06/30/19 09:00 Promyelocytes % 0 % 06/30/19 09:00 Blast Cells % 0 % 06/30/19 09:00 Nucleated RBC % Not Reportable 06/30/19 09:00 Seg Neutrophils # 10.6 K/mm3 (1.8-7.7) H 06/28/19 16:48 Seg Neutrophils # Man 10.0 K/mm3 (1.8-7.7) H 06/30/19 09:00 Band Neutrophils # 0.0 K/mm3 06/30/19 09:00 Lymphocytes # (Manual) 4.4 K/mm3 (1.2-5.4) 06/30/19 09:00 Abs React Lymphs (Man) 0.0 K/mm3 06/30/19 09:00 Monocytes # (Manual) 0.5 K/mm3 (0.0-0.8) 06/30/19 09:00 Eosinophils # (Manual) 0.2 K/mm3 (0.0-0.4) 06/30/19 09:00 Basophils # (Manual) 0.2 K/mm3 (0.0-0.1) H 06/30/19 09:00 Metamyelocytes # 0.0 K/mm3 06/30/19 09:00 Myelocytes # 0.0 K/mm3 06/30/19 09:00 Promyelocytes # 0.0 K/mm3 06/30/19 09:00 Blast Cells # 0.0 K/mm3 06/30/19 09:00 WBC Morphology Not Reportable 06/30/19 09:00 Hypersegmented Neuts Not Reportable 06/30/19 09:00 Hyposegmented Neuts Not Reportable 06/30/19 09:00 Hypogranular Neuts Not Reportable 06/30/19 09:00 Smudge Cells Not Reportable 06/30/19 09:00 Toxic Granulation Not Reportable 06/30/19 09:00 Toxic Vacuolation Not Reportable 06/30/19 09:00 Dohle Bodies Not Reportable 06/30/19 09:00 Pelger-Huet Anomaly Not Reportable 06/30/19 09:00 Anastasiia Rods Not Reportable 06/30/19 09:00 Platelet Estimate Consistent w auto 06/30/19 09:00 Clumped Platelets Not Reportable 06/30/19 09:00 Plt Clumps, EDTA Not Reportable 06/30/19 09:00 Large Platelets Not Reportable 06/30/19 09:00 Giant Platelets Not Reportable 06/30/19 09:00 Platelet Satelliting Not Reportable 06/30/19 09:00 Plt Morphology Comment Not Reportable 06/30/19 09:00 RBC Morphology Normal 06/30/19 09:00 Dimorphic RBCs Not Reportable 06/30/19 09:00 Polychromasia Not Reportable 06/30/19 09:00 Hypochromasia Not Reportable 06/30/19 09:00 Poikilocytosis Not Reportable 06/30/19 09:00 Anisocytosis Not Reportable 06/30/19 09:00 Microcytosis Not Reportable 06/30/19 09:00 Macrocytosis Not Reportable 06/30/19 09:00 Spherocytes Not Reportable 06/30/19 09:00 Pappenheimer Bodies Not Reportable 06/30/19 09:00 Sickle Cells Not Reportable 06/30/19 09:00 Target Cells Not Reportable 06/30/19 09:00 Tear Drop Cells Not Reportable 06/30/19 09:00 Ovalocytes Not Reportable 06/30/19 09:00 Helmet Cells Not Reportable 06/30/19 09:00 [place] Bodies Not Reportable 06/30/19 09:00 [place] Rings Not Reportable 06/30/19 09:00 Many Cells Not Reportable 06/30/19 09:00 Bite Cells Not Reportable 06/30/19 09:00 Crenated Cell Not Reportable 06/30/19 09:00 Elliptocytes Not Reportable 06/30/19 09:00 Acanthocytes (Spur) Not Reportable 06/30/19 09:00 Rouleaux Not Reportable 06/30/19 09:00 Hemoglobin C Crystals Not Reportable 06/30/19 09:00 Schistocytes Not Reportable 06/30/19 09:00 Malaria parasites Not Reportable 06/30/19 09:00 Ike Bodies Not Reportable 06/30/19 09:00 Hem Pathologist Commnt No 06/30/19 09:00 Sodium 146 mmol/L (137-145) H 07/02/19 06:41 Potassium 3.8 mmol/L (3.6-5.0) 07/02/19 06:41 Chloride 108.3 mmol/L (98-107) H 07/02/19 06:41 Carbon Dioxide 23 mmol/L (22-30) 07/02/19 06:41 Anion Gap 19 mmol/L 07/02/19 06:41 BUN 10 mg/dL (9-20) 07/02/19 06:41 Creatinine 0.8 mg/dL (0.8-1.5) 07/02/19 06:41 Estimated GFR > 60 ml/min 07/02/19 06:41 BUN/Creatinine Ratio 13 % 07/02/19 06:41 Glucose 74 mg/dL (75-100) L 07/02/19 06:41 POC Glucose 258 (70-105) H 07/02/19 12:18 Hemoglobin A1c 11.7 % (4-6) H 06/28/19 18:35 Calcium 9.0 mg/dL (8.4-10.2) 07/02/19 06:41 Phosphorus 5.00 mg/dL (2.5-4.5) H 06/28/19 19:16 Magnesium 3.20 mg/dL (1.7-2.3) H 06/28/19 19:16 Total Bilirubin 0.30 mg/dL (0.1-1.2) 06/29/19 05:54 Direct Bilirubin < 0.2 mg/dL (0-0.2) 06/28/19 18:35 Indirect Bilirubin 0.3 mg/dL 06/28/19 18:35 AST 19 units/L (5-40) 06/29/19 05:54 ALT 32 units/L (7-56) 06/29/19 05:54 Alkaline Phosphatase 130 units/L (35-129) H 06/29/19 05:54 Total Creatine Kinase 360 units/L (55-170) H 06/28/19 18:35 Total Protein 7.1 g/dL (6.3-8.2) 06/29/19 05:54 Albumin 3.6 g/dL (3.9-5) L 06/29/19 05:54 Albumin/Globulin Ratio 1.0 % 06/29/19 05:54 Triglycerides 195 mg/dL (2-149) H 06/30/19 09:00 Cholesterol 152 mg/dL (50-199) 06/30/19 09:00 LDL Cholesterol Direct 83 mg/dL (50-130) 06/30/19 09:00 HDL Cholesterol 33 mg/dL (40-59) L 06/30/19 09:00 Cholesterol/HDL Ratio 4.60 % 06/30/19 09:00 Urine Color Yellow (Yellow) 06/29/19 09:42 Urine Turbidity Clear (Clear) 06/29/19 09:42 Urine pH 5.0 (5.0-7.0) 06/29/19 09:42 Ur Specific [place] 1.030 (1.003-1.030) 06/29/19 09:42 Urine Protein <15 mg/dl mg/dL (Negative) 06/29/19 09:42 Urine Glucose (UA) >=500 mg/dL (Negative) 06/29/19 09:42 Urine Ketones Tr mg/dL (Negative) 06/29/19 09:42 Urine Blood Neg (Negative) 06/29/19 09:42 Urine Nitrite Neg (Negative) 06/29/19 09:42 Urine Bilirubin Neg (Negative) 06/29/19 09:42 Urine Urobilinogen < 2.0 mg/dL (<2.0) 06/29/19 09:42 Ur Leukocyte Esterase Neg (Negative) 06/29/19 09:42 Urine WBC (Auto) 7.0 /HPF (0.0-6.0) H 06/29/19 09:42 Urine RBC (Auto) 3.0 /HPF (0.0-6.0) 06/29/19 09:42 U Epithel Cells (Auto) < 1.0 /HPF (0-13.0) 06/29/19 09:42 Urine Mucus Few /HPF 06/29/19 09:42 Active Medications - Current Medications Current Medications: Generic Name Dose Route Start Last Admin Trade Name Freq PRN Reason Stop Dose Admin Albuterol 2.5 mg 06/28/19 18:45 Proventil IH Q3H PRN Shortness Of Breath Dextrose 50 ml 06/29/19 08:56 D50w (25gm) Syringe IV Q30MIN PRN Hypoglycemia Protocol Famotidine 20 mg 06/28/19 22:00 07/02/19 09:48 Pepcid PO 20 mg BID KWASI Administration Heparin Sodium (Porcine) 5,000 unit 06/28/19 22:00 07/02/19 09:49 Heparin SUB-Q 5,000 unit Q12HR KWASI Administration Hydralazine HCl 10 mg 06/28/19 18:55 Apresoline IV Q6H PRN Hypertension Ceftriaxone Sodium 1 gm in 50 mls @ 100 mls/hr 06/28/19 20:00 07/01/19 21:46 Rocephin/Ns 1 Gm/50 Ml IV 100 mls/hr Q24H KWASI Administration Protocol Sodium Chloride 1,000 mls @ 125 mls/hr 06/29/19 09:00 07/01/19 18:19 Nacl 0.45% 1000 Ml IV 125 mls/hr DIRECT KWASI Administration Insulin Human Isoph/Insulin Regular 32 unit 07/02/19 09:30 07/02/19 10:50 Humulin 70/30 SUB-Q 32 unit BIDDIAB KWASI Administration Insulin Human Regular 0 units 06/29/19 11:30 07/02/19 12:39 Humulin R SUB-Q 4 units ACHS KWASI Administration Protocol Lisinopril 40 mg 07/01/19 10:00 07/02/19 09:51 Zestril PO 40 mg QDAY KWASI Administration Ondansetron HCl 4 mg 06/30/19 13:05 06/30/19 13:18 Zofran IV 4 mg Q4H PRN Administration Nausea Pravastatin Sodium 20 mg 06/30/19 22:00 07/01/19 21:49 Pravachol PO 20 mg QHS KWASI Administration Sodium Chloride 10 ml 06/28/19 22:00 07/02/19 09:49 Sodium Chloride Flush Syringe 10 Ml IV 10 ml BID KWASI Administration Sodium Chloride 10 ml 06/28/19 18:45 Sodium Chloride Flush Syringe 10 Ml IV PRN PRN LINE FLUSH Nutrition/Malnutrition Assess - Dietary Evaluation Nutrition/Malnutrition Findings: Nutrition Notes Start: 06/30/19 14:10 Freq: Status: Active Protocol: Document 06/30/19 14:10 OH (Rec: 06/30/19 14:25 OH [id number]) Nutrition Notes Need for Assessment generated from: MD Order Initial or Follow up Assessment Current Diagnosis Diabetes Current Diet Consistent CHO Labs/Tests HGBA1C 11.7 TG 195 GLU 152 NA 147 ALB 3.6 TC 152 K+ 4.1 Pertinent Medications Heparin Height 5 ft 7 in Weight 68 kg Ramona Body Weight (kg) 67.27 BMI 23.4 Intake Prior to Admission Fair Weight Status Appropriate Subjective/Other Information Pt. newly diagnosed as diabetic. Pt. speaks Liberian only. [employer] line used to discuss diagnosis with pt. Per pt his will be preparing /cooking etc for him. Phone number of provided on white board in patient's room. Will use number as contact for diabetes education class here at [facility]. NO N/V noted by patient. He reports of not consuming ET0H beverages frequently. Pt. using regular sugar to anna foods. Update: /GF in room. Pt. verbalized pt will follow recommendations provided. Percent of energy/protein needs met: 50/50% Burn Absent Trauma Absent GI Symptoms None Current % PO Fair (50-74%) Minimum of two criteria No physical signs of malnutrition #3 Nutrition Diagnosis Inadequate oral intake Etiology poor oral intake As Evidenced by Signs and Symptoms <75% meal trays consumed #2 Nutrition Diagnosis Altered nutrition-related laboratory values Etiology uncontrolled DM As Evidenced by Signs and Symptoms DKA/Inadequate understanding of diabetes and [place] [facility] health implications #1 Nutrition Diagnosis Food and nutrition-related knowledge deficit Etiology newly diagnosed diabetic As Evidenced by Signs and Symptoms hgba1c 11.7; questions related to DM diagnosis Is patient on ventilator? No Is Patient Ambulatory and/or Out of Bed Yes REE-([facility]-ambulatory/OOB) [ [id number] [id number]] Calculation Used for Recommendations [facility] Additional Notes PRO: 0.8-1.0 g/kg 54-67 g/ day FLUID: 1ml/kcal Nutrition Intervention Change Diet Order: Consistent CHO Teaching Recipient Patient,Significant Other Learning Readiness Fair Teaching Methods Discussion,Handout Response to Teaching Reinforcement needed Education Handouts Provided Provided pt w/Liberian-[employer] materials related to diabetes. Rec pt attend diabetes education class to have better understanding of diabetes and impact on terminal system operator health. Pt. reported no health insurance that he could use for referral to further nutrition education related to DM. GF states he has never been to a MD in his life. Pt. has referrals for sliding scale/clinics for PCP. Emphasized need to monitor bloodsugar levels to manage kidney impact. CHO SOURCES/DM + KIDNEY DZ/HYPO-HYPERGLYCEMIC HANDOUTS PROVIDED. Barriers to Learning Reading skills,Motivation,Age related,Language,Emotional, Cultural,Financial, Environmental,Social Goal #1 po intake to exceed 75% at meals Anticipated Discharge Needs: DM EDUCATION/REINFORCEMENT Follow-Up By: 07/03/19 Additional Comments po intake/further DM instruction prn
[2019-07-02] MEDS: SODIUM CHLORIDE 0.45% 1000 ML 1,000 ML IV SCH (19:30)
[2019-07-02] MEDS: cefTRIAXone/NS 1 GM/50 ML 1 GM/50 ML BAG IV SCH (22:43)
[2019-07-02] MEDS: PRAVASTATIN 20 MG TAB PO SCH (22:44)
[2019-07-03 06:15] LABS: BUN/Creatinine Ratio 19; Blood Urea Nitrogen 13 mg/dL (9-20); Calcium 8.6 mg/dL (8.4-10.2); Hemolysis Index 4
[2019-07-03] MEDS: INSULIN REGULAR, HUMAN 100 UNITS/1 ML SUB-Q SCH ×3 (08:51→17:07)
[2019-07-03] MEDS: HEPARIN 5,000 UNIT/1 ML VIAL SUB-Q SCH (09:58)
[2019-07-03] MEDS: LISINOPRIL 40 MG TAB PO SCH (09:58)
[2019-07-03] MEDS: INSULIN NPH/REGULAR 70/30 INJ SUB-Q SCH ×2 (09:58→17:13)
[2019-07-03] MEDS: FAMOTIDINE 20 MG TAB PO SCH (09:59)
--- NOTE | 2019-07-03 15:18 | Discharge Summary ---
Providers - Providers Date of Admission: 06/28/19 18:45 Date of discharge: 07/03/19 Attending physician: NELSON CYR 06/30/19 14:18 Consult to Dietitian/Nutrition [CONS] Routine Physician Instructions: Reason For Exam: Reason for Consult: Diet education Primary care physician: ED DOC Hospitalization Condition: Fair Hospital course: --Diabetic ketoacidosis: Managed per DKA protocol, off insulin drip, HbA1c 11.7 --Type 2 diabetes mellitus; moderate control Continue Novolin 70/30, Accu-Chek sliding scale coverage ADA diet, diabetic education, nutrition education. --Mild acute gastritis: Resolved, Protonix, antiemetics --Hypernatremia; secondary to dehydration; Trending down, encourage plenty of oral fluids Monitor electrolytes --Hypertensive urgency; present on admission Moderate control, continue current antihypertensives and PRN medications --Acute kidney injury; vasomotor nephropathy, present on admission Resolved, avoid nephrotoxins --Health maintenance; lipid panel shows elevated triglycerides, low HDL, and LDL in the 80s. Low-dose statin Preventative health counseling performed for 17 minutes Disposition: DC- TO HOME OR SELFCARE Time spent for discharge: 32 min Core Measure Documentation - Palliative Care Palliative Care/ Comfort Measures: Not Applicable - Core Measures Any of the following diagnoses?: none Exam - Constitutional Vitals: Temp Pulse Resp BP Pulse Ox 97.8 F 79 16 128/84 96 07/03/19 06:28 07/03/19 09:58 07/03/19 06:28 07/03/19 09:58 07/03/19 06:28 General appearance: Present: no acute distress, well-nourished - EENT Eyes: Present: PERRL, EOM intact - Neck Neck: Present: supple, normal ROM - Respiratory Respiratory effort: normal Respiratory: negative: rales, rhonchi, wheezing - Cardiovascular Rhythm: regular Heart Sounds: Present: S1 & S2 - Extremities Extremities: no ischemia, No edema - Abdominal General gastrointestinal: Present: soft, non-tender, non-distended, normal bowel sounds - Integumentary Integumentary: Present: clear, warm - Musculoskeletal Musculoskeletal: strength equal bilaterally - Psychiatric Psychiatric: appropriate mood/affect, cooperative - Neurologic Neurologic: CNII-XII intact, moves all extremities Plan Activity: advance as tolerated, fall precautions Diet: diabetic Additional Instructions: Advised to see a private stripping and booking machine operator in 1-2 weeks. Advised to see PMD at [facility] in 3-5 days Follow up with: DOC,ED, MD [Primary Care Provider] - 7 Days Prescriptions: Insulin Regular, Human [HumuLIN R] 3 units SUB-Q ACHS #2 vial Insulin NPH/Regular [NovoLIN 70/30] 35 unit SUB-Q BIDDIAB #2 vial Pravastatin [Pravachol] 20 mg PO QHS #30 tablet lisinopriL [Zestril TAB] 40 mg PO QDAY #30 tablet Other Discharge Orders: Glucometer (Amb) Location: None Selected Glucometer supplies[Amb] Location: None Selected
[2019-07-03 18:15] VITALS: BP 139/82
== END 2019-07-03 17:25 | disposition home or self-care (01) | DRG 637 ==
LOC: ED 14:51 → CC1 18:45 → 3A 06-29 10:00
PROVIDERS: ADMIT Internal Medicine; ATTEND Internal Medicine
DX: E11.10 Type 2 diabetes mellitus with ketoacidosis without coma (principal); N17.0 Acute kidney failure with tubular necrosis; E87.0 Hyperosmolality and hypernatremia; E11.65 Type 2 diabetes mellitus with hyperglycemia; R65.10 Systemic inflammatory response syndrome (SIRS) of non-infectious origin without acute organ dysfunction; K29.00 Acute gastritis without bleeding; I16.0 Hypertensive urgency; E86.0 Dehydration; Z83.3 Family history of diabetes mellitus; Z82.49 Family history of ischemic heart disease and other diseases of the circulatory system
CPT/HCPCS: 36415; 71045; 78264; 80048; 80053; 80061; 80076; 81001; 82550; 82962; 83036; 83735; 84100; 85007; 85025; 93005; 93010; G0378; A9270-GY; A9541; J0696; J1644; J1815; J2405; J7030